=== PATIENT | male | born 1965 | race Caucasian/White ===

== ENCOUNTER 2019-08-31 16:22 | Emergency (ER) | payer MEDICAID ==
[~2019-08-31] VITALS: Ht 167.6 cm; Wt 74.8 kg
[2019-08-31 16:51] VITALS: BP 128/71
--- NOTE | 2019-08-31 19:11 | NUR ---
FIRST CALL. NO ANSWER
--- NOTE | 2019-08-31 19:20 | NUR ---
SECOND CALL NO RESPONSE.
--- NOTE | 2019-08-31 19:30 | NUR ---
THIRD CALL NO RESPONSE.
== END 2019-08-31 19:11 | disposition left against medical advice (07) ==
LOC: MED 16:22
DX: M54.5 Low back pain (principal); Z53.21 Procedure and treatment not carried out due to patient leaving prior to being seen by health care provider